=== PATIENT | female | born 1965 | race Caucasian/White ===

== ENCOUNTER 2021-02-17 13:39 | Inpatient (IN) | payer OTHER ==
[~2021-02-17] VITALS: Ht 157.5 cm; Wt 112.0 kg
[2021-02-17 14:19] LABS: HEMOGLOBIN 13.2 gm/dl (12.3-15.3); RED BLOOD COUNT 4.49 M/UL (4.00-5.10); WHITE BLOOD COUNT 10.7 K/UL (4.5-11.0)
[2021-02-17 14:48] LABS: BUN/CREATININE RATIO 23 (0-10)
[2021-02-17 18:06] LABS: BUN/CREATININE RATIO 21 (0-10)
[2021-02-17] MEDS ORDERED: NP THYROID90 MG PO (18:20)
[2021-02-17] MEDS ORDERED: TYLENOL EXTRA500 MG PO (18:20)
[2021-02-17] MEDS ORDERED: AZITHROMYCIN250 MG PO (18:20)
[2021-02-17 21:11] LABS: HEMOGLOBIN 12.5 gm/dl (12.3-15.3); RED BLOOD COUNT 4.24 M/UL (4.00-5.10)
[2021-02-17 21:46] LABS: BUN/CREATININE RATIO 20 (0-10)
[2021-02-18 02:49] LABS: HEMOGLOBIN 12.4 gm/dl (12.3-15.3); RED BLOOD COUNT 4.25 M/UL (4.00-5.10); WHITE BLOOD COUNT 9.8 K/UL (4.5-11.0)
[2021-02-18 03:10] LABS: BUN/CREATININE RATIO 21 (0-10)
[2021-02-19 09:28] LABS: RED BLOOD COUNT 4.4 M/UL (4.00-5.10); WHITE BLOOD COUNT 9.7 K/UL (4.5-11.0)
[2021-02-19 09:48] LABS: BUN/CREATININE RATIO 27 (0-10)
[2021-02-21 05:20] LABS: RED BLOOD COUNT 4.21 M/UL (4.00-5.10)
[2021-02-21 05:29] LABS: WHITE BLOOD COUNT 14.1 K/UL (4.5-11.0)
[2021-02-21 06:16] LABS: BUN/CREATININE RATIO 27 (0-10)
[2021-02-22 10:01] LABS: HEMOGLOBIN 12.9 gm/dl (12.3-15.3); RED BLOOD COUNT 4.54 M/UL (4.00-5.10); WHITE BLOOD COUNT 16.7 K/UL (4.5-11.0)
[2021-02-22 10:24] LABS: BUN/CREATININE RATIO 29 (0-10)
[2021-02-23 04:24] LABS: HEMOGLOBIN 12.3 gm/dl (12.3-15.3); RED BLOOD COUNT 4.32 M/UL (4.00-5.10); WHITE BLOOD COUNT 19.4 K/UL (4.5-11.0)
[2021-02-23 04:39] LABS: BUN/CREATININE RATIO 30 (0-10)
[2021-02-23] MEDS ORDERED: OMNICEF 300 MG300 MG PO (14:54)
[2021-02-23] MEDS ORDERED: DECADRON6 MG PO (14:54)
[2021-02-23] MEDS ORDERED: PROTONIX 40 MG40 M1 PO (14:54)
[2021-02-23] MEDS ORDERED: PROVENTIL HFA6.7 GM INH (14:54)
[2021-02-23] MEDS ORDERED: HUMIBID LA TAB600 MG PO (14:54)
== END 2021-02-23 16:08 | disposition home or self-care (01) | DRG 177 ==
LOC: ER1 13:39 → ZEROF 17:30 → 3 EAST 02-18 01:28 → MED SURG 4 02-18 06:00
PROVIDERS: Emergency Medicine; ADMIT Internal Medicine
PROC: 8E0ZXY6 Isolation (ICD-10-PCS; principal; 2021-02-17)
PROC: 3E0333Z Introduction of Anti-inflammatory into Peripheral Vein, Percutaneous Approach (ICD-10-PCS; 2021-02-17)
DX: U07.1 COVID-19 (principal); J12.82 Pneumonia due to coronavirus disease 2019; J96.01 Acute respiratory failure with hypoxia; E87.1 Hypo-osmolality and hyponatremia; Z68.42 Body mass index [BMI] 45.0-49.9, adult; I10 Essential (primary) hypertension; K58.0 Irritable bowel syndrome with diarrhea; G43.909 Migraine, unspecified, not intractable, without status migrainosus; E03.9 Hypothyroidism, unspecified; E66.01 Morbid (severe) obesity due to excess calories; R74.01 Elevation of levels of liver transaminase levels; J30.2 Other seasonal allergic rhinitis; Z98.51 Tubal ligation status; Z82.49 Family history of ischemic heart disease and other diseases of the circulatory system; Z83.3 Family history of diabetes mellitus; Z98.890 Other specified postprocedural states; Z79.899 Other long term (current) drug therapy
CPT/HCPCS: 36415; 36600; 71045; 80053; 81001; 82550; 82553; 82728; 82803; 83605; 83735; 83874; 83880; 84100; 84484; 85025; 85379; 86140; 87040; 87086; 93005; 94640; 94664; 94760; 96372; 96374; 96375; 96376; 99285; J0456; J0696; J1100; J1650; J7030; Q9967; U0002